=== PATIENT | male | born 2000 | race Hispanic/Latino ===

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

== ENCOUNTER 2020-06-07 01:01 | Emergency (ER) | payer OTHER ==
[2020-06-07] MEDS ORDERED: ACETAMINOPHEN EXTRA STRENGTH 500 MG TABLET ONE (01:31)
[2020-06-07] MEDS ORDERED: IBUPROFEN 600 MG TABLET ONE (01:31)
[2020-06-07] MEDS ORDERED: AMOXICILLIN/POTASSIUM CLAV 875-125 TABLET PO ONE (02:30)
== END 2020-06-07 02:36 | disposition home or self-care (01) ==
LOC: EDH 01:01
DX: S02.2XXA Fracture of nasal bones, initial encounter for closed fracture (principal); Z72.0 Tobacco use; Y04.0XXA Assault by unarmed brawl or fight, initial encounter; Y93.89 Activity, other specified; Y92.89 Other specified places as the place of occurrence of the external cause; Y99.8 Other external cause status
CPT/HCPCS: 70486

== ENCOUNTER 2021-04-15 11:28 | Emergency (ER) | payer OTHER ==
[~2021-04-15] VITALS: Ht 172.7 cm; Wt 74.8 kg
[2021-04-15 11:30] VITALS: BP 141/76
== END 2021-04-15 12:59 | disposition home or self-care (01) ==
LOC: EDH 11:28
DX: J02.9 Acute pharyngitis, unspecified (principal)
CPT/HCPCS: 99281

== ENCOUNTER 2022-06-27 14:45 | Emergency (ER) | payer OTHER ==
[~2022-06-27] VITALS: Ht 175.3 cm; Wt 77.1 kg
[2022-06-27 14:46] VITALS: BP 108/72
[2022-06-27] MEDS ORDERED: APAP/CODEINE 120/12MG 5ML PO STA (15:54)
== END 2022-06-27 16:41 | disposition home or self-care (01) ==
LOC: EDH 14:45
DX: J06.9 Acute upper respiratory infection, unspecified (principal); Z20.822 Contact with and (suspected) exposure to COVID-19
CPT/HCPCS: 99283; 87635; 87880; 87804 ×2; C9803